=== PATIENT | male | born 1975 | race African-American/Black ===

== ENCOUNTER 2019-02-01 12:59 | Emergency (ER) | payer SELFPAY ==
[~2019-02-01] VITALS: Ht 177.8 cm; Wt 90.7 kg
[2019-02-01] MEDS ORDERED: NACL 0.9% 1,000 ML IV ONE (13:04)
[2019-02-01 13:37] VITALS: BP_SYST 122
[2019-02-01 13:41] LABS: HEMATOCRIT 46.4 % (36-54); HEMOGLOBIN 15.3 g/dL (14.0-18.0); MEAN CORPUSCULAR HEMOGLOBIN 33 pg (27-31); MEAN CORPUSCULAR HGB CONC 33 % (32-36); MEAN CORPUSCULAR VOLUME 101 fL (79.0-98.0); RED CELL DISTRIBUTION WIDTH 12.6 % (9.0-15.0); WHITE BLOOD COUNT (AUTO) 5.7 K/uL (4.8-10.8)
[2019-02-01 13:42] LABS: BASOPHILS % (AUTO) 0.3 % (0.0-2.0); EOSINOPHILS # (AUTO) 0.1 K/uL (0.0-0.4); EOSINOPHILS % (AUTO) 1.5 % (0.0-4.0); LYMPHOCYTES # (AUTO) 1.4 K/uL (1.0-5.5); LYMPHOCYTES % (AUTO) 24.3 % (20.5-51.5); MONOCYTES # (AUTO) 0.4 K/uL (0.0-1.0); MONOCYTES % (AUTO) 6.3 % (1.7-9.3); NEUTROPHILS # (AUTO) 3.8 K/uL (1.8-7.7); NEUTROPHILS % (AUTO) 67.6 % (40.0-70.0); PLATELET COUNT (AUTO) 228 K/uL (130-430)
[2019-02-01 13:50] LABS: CALCIUM 8.8 mg/dL (8.4-11.0); CREATININE 1.2 mg/dL (0.55-1.30); POTASSIUM 4.1 mmol/L (3.5-5.1)
[2019-02-01 13:54] LABS: PROTHROMBIN TIME 10.2 SECS (9.5-12.5); TOTAL BILIRUBIN 1.1 mg/dL (0.0-1.0)
[2019-02-01] MEDS ORDERED: ACETAMINOPHEN 500 MG TABLET PO ONE (14:15)
[2019-02-01 14:23] LABS: BILIRUBIN,URINE NEGATIVE (NEGATIVE); BLOOD, URINE NEGATIVE (NEGATIVE); CLARITY/URINE CLEAR (CLEAR); COLOR,URINE YELLOW (YELLOW); GLUCOSE,URINE NEGATIVE (NEGATIVE); KETONES,URINE NEGATIVE (NEGATIVE); LEUKOCYTE ESTERASE ,URINE NEGATIVE (NEGATIVE); NITRITE, URINE NEGATIVE (NEGATIVE); PH,URINE 5.5 (5.0-8.0); PROTEIN URINE 1+ (NEGATIVE); UROBILINOGEN,URINE 0.2 (0.2-1.0)
[2019-02-01] MEDS ORDERED: KETOROLAC TROMETHAMINE 30 MG VIAL IVP ONE (14:30)
[2019-02-01] MEDS ORDERED: DEXAMETHASONE SOD PHOSPHATE 10 MG/ML VIAL IVP ONE (14:30)
[2019-02-01 15:02] LABS: BACTERIA,URINE FEW /HPF (None Seen); RBC,URINE 0-3 /HPF (0-3); WBC,URINE 0-3 /HPF (0-3)
[2019-02-01 15:03] LABS: MUCUS,URINE 1+ /LPF (None Seen)
[2019-02-01 16:51] VITALS: BP_SYST 122
== END 2019-02-01 16:53 | disposition home or self-care (01) ==
LOC: SED 12:59
DX: I31.9 Disease of pericardium, unspecified (principal)
CPT/HCPCS: 36415; 71045; 80053; 81000; 82150; 82550; 83605; 83690; 84484; 85025; 85610; 85730; 87040; 93005; 96374; 96375; 99284; J1100; J1885; J7030

== ENCOUNTER 2019-02-18 02:45 | Emergency (ER) | payer SELFPAY ==
[~2019-02-18] VITALS: Ht 177.8 cm; Wt 86.2 kg
[2019-02-18 03:02] VITALS: BP_SYST 142
--- NOTE | 2019-02-18 03:02 | NUR ---
Patient to ER bed H1 to gown for evaluation. Side rails up.
--- NOTE | 2019-02-18 03:05 | NUR ---
Patient AOx4, ambulatory, presents to ER with complaint of 10/10 PEDRAZA x3 days. Patient also states nausea, body aches, and photophobia. Patient states that during last visit to ER 02/01/19 he was told that he had inflammation to his heart and given steroids which was effective. No other symptoms or complaints. Will continue to monitor. at bedside.
--- NOTE | 2019-02-18 03:10 | NUR ---
ER MD Mtz at bedside for medical evaluation.
[2019-02-18] MEDS ORDERED: DIPHENHYDRAMINE INJ 50 MG/ML VIAL IVP ONE (03:15)
[2019-02-18] MEDS ORDERED: PROCHLORPERAZINE EDISYLATE 10 MG/2 ML VIAL IVP ONE (03:15)
[2019-02-18] MEDS ORDERED: MORPHINE 4 MG/ML INJ. SYRINGE IVP ONE (03:15)
[2019-02-18] MEDS ORDERED: NACL 0.9% 1,000 ML IV ONE (03:15)
--- NOTE | 2019-02-18 03:32 | NUR ---
# 18 gauge angiocath placed to RAC. Use of asceptic technique. Opsite placed over site. Blood return noted. Blood for lab drawn from site. Flushed with 10 cc of normal saline. No evidence of infiltration noted. Patient tolerated well.
--- NOTE | 2019-02-18 04:11 | NUR ---
Patient went to radiology in stable condition.
--- NOTE | 2019-02-18 04:19 | NUR ---
Patient returned from radiology and was moved to bed 2.
[2019-02-18 04:26] LABS: BASOPHILS % (AUTO) 0.4 % (0.0-2.0); EOSINOPHILS % (AUTO) 0.5 % (0.0-4.0); HEMATOCRIT 43.7 % (36-54); HEMOGLOBIN 14.6 g/dL (14.0-18.0); LYMPHOCYTES % (AUTO) 9.2 % (20.5-51.5); MEAN CORPUSCULAR HEMOGLOBIN 34 pg (27-31); MEAN CORPUSCULAR HGB CONC 33 % (32-36); MEAN CORPUSCULAR VOLUME 102 fL (79.0-98.0); MONOCYTES % (AUTO) 7.1 % (1.7-9.3); NEUTROPHILS # (AUTO) 9.3 K/uL (1.8-7.7); NEUTROPHILS % (AUTO) 82.8 % (40.0-70.0); PLATELET COUNT (AUTO) 190 K/uL (130-430); RED BLOOD CELL COUNT(AUTO) 4.31 MIL/uL (4.2-6.2); RED CELL DISTRIBUTION WIDTH 12.7 % (9.0-15.0); WHITE BLOOD COUNT (AUTO) 11.2 K/uL (4.8-10.8)
[2019-02-18 04:27] LABS: EOSINOPHILS # (AUTO) 0.1 K/uL (0.0-0.4); MONOCYTES # (AUTO) 0.8 K/uL (0.0-1.0)
[2019-02-18 05:14] VITALS: BP_SYST 134
--- NOTE | 2019-02-18 05:14 | NUR ---
Patient given written and verbal discharge instructions and verbalizes understanding. ER MD discussed with patient the results and treatment provided. Patient in stable condition. ID arm band removed. IV catheter removed intact and dressing applied, no active bleeding. Rx of Tramadol, Motrin, and Zofran given. Patient educated on pain management and to follow up with PMD. Pain Scale 0/10. Opportunity for questions provided and answered. Medication side effect fact sheet provided.
== END 2019-02-18 05:14 | disposition home or self-care (01) ==
LOC: SED 02:45
DX: R51 Headache (principal); R11.0 Nausea; H53.149 Visual discomfort, unspecified
CPT/HCPCS: 36415; 70450; 85025; 96374; 96375; 99284; J0780; J1200; J2270; J7030

== ENCOUNTER 2020-10-17 05:10 | Emergency (ER) | payer SELFPAY ==
[~2020-10-17] VITALS: Ht 177.8 cm; Wt 90.7 kg
[2020-10-17 05:25] VITALS: BP_SYST 162
--- NOTE | 2020-10-17 05:25 | NUR ---
Patient to ER bed 8 to gown for evaluation. Side rails up. Report received from SHAW Capellan.
--- NOTE | 2020-10-17 05:27 | NUR ---
pt a&o x4 from home c/o of right flank pain that started an hour ago, nausea, vomiting, and constipation. pt rates pain 10/10. last bowel movement this morning but pt states it was "a little pebble". hx of kidney stones. pt denies trouble urinating, burning or pain upon urination.
--- NOTE | 2020-10-17 05:29 | NUR ---
ER Dr. Kelley at bedside examining patient.
--- NOTE | 2020-10-17 05:30 | NUR ---
# 18 gauge angiocath placed to LAC. Use of asceptic technique. Opsite placed over site. Blood return noted. Blood, blood cultures, lactic for lab drawn from site. Flushed with 10 cc of normal saline. No evidence of infiltration noted. Patient tolerated well.
--- NOTE | 2020-10-17 05:42 | NUR ---
PATIENT MEDICATED PER MD ORDER. PT TOLERATED WELL.
[2020-10-17] MEDS ORDERED: KETOROLAC TROMETHAMINE 30 MG VIAL IVP ONE (05:45)
[2020-10-17] MEDS ORDERED: ONDANSETRON HCL 4 MG/2 ML VIAL IVP ONE (05:45)
[2020-10-17] MEDS ORDERED: NACL 0.9% 1,000 ML IV ONE (05:45)
--- NOTE | 2020-10-17 05:52 | NUR ---
PATIENT HAD AN EPISODE OF VOMITING. AWARE.
[2020-10-17 05:58] LABS: BASOPHILS % (AUTO) 0.3 % (0.0-2.0); EOSINOPHILS # (AUTO) 0.1 K/uL (0.0-0.4); EOSINOPHILS % (AUTO) 0.6 % (0.0-4.0); HEMOGLOBIN 14.2 g/dL (14.0-18.0); LYMPHOCYTES # (AUTO) 1.7 K/uL (1.0-5.5); LYMPHOCYTES % (AUTO) 16.1 % (20.5-51.5); MEAN CORPUSCULAR HEMOGLOBIN 34 pg (27-31); MEAN CORPUSCULAR HGB CONC 34 % (32-36); MEAN CORPUSCULAR VOLUME 100 fL (79.0-98.0); MONOCYTES # (AUTO) 0.7 K/uL (0.0-1.0); MONOCYTES % (AUTO) 6.8 % (1.7-9.3); NEUTROPHILS # (AUTO) 7.8 K/uL (1.8-7.7); NEUTROPHILS % (AUTO) 76.2 % (40.0-70.0); PLATELET COUNT (AUTO) 210 K/uL (130-430); RED BLOOD CELL COUNT(AUTO) 4.22 MIL/uL (4.2-6.2); RED CELL DISTRIBUTION WIDTH 12.4 % (9.0-15.0); WHITE BLOOD COUNT (AUTO) 10.3 K/uL (4.8-10.8)
[2020-10-17 06:08] LABS: CALCIUM 8.2 mg/dL (8.4-11.0); CREATININE 1.46 mg/dL (0.55-1.30); POTASSIUM 3.3 mmol/L (3.5-5.1)
--- NOTE | 2020-10-17 06:13 | NUR ---
PATIENT USING BEDSIDE URINAL TO GIVE URINE SAMPLE.
[2020-10-17 06:14] LABS: ALBUMIN 3.7 g/dL (3.4-4.8)
[2020-10-17 06:33] LABS: BILIRUBIN,URINE NEGATIVE (NEGATIVE); BLOOD, URINE 3+ (NEGATIVE); CLARITY/URINE SLIGHTLY HAZY (CLEAR); COLOR,URINE YELLOW (YELLOW); GLUCOSE,URINE TRACE (NEGATIVE); KETONES,URINE TRACE (NEGATIVE); LEUKOCYTE ESTERASE ,URINE NEGATIVE (NEGATIVE); NITRITE, URINE NEGATIVE (NEGATIVE); PH,URINE 5.5 (5.0-8.0); PROTEIN URINE TRACE (NEGATIVE); UROBILINOGEN,URINE 0.2 (0.2-1.0)
[2020-10-17 06:40] LABS: BACTERIA,URINE FEW /HPF (None Seen); RBC,URINE 20-50 /HPF (0-3); WBC,URINE 0-3 /HPF (0-3)
--- NOTE | 2020-10-17 06:44 | NUR ---
ultrasound at bedside.
--- NOTE | 2020-10-17 06:55 | NUR ---
patient states pain has increased to a 7 out of 10. md aware.
[2020-10-17] MEDS ORDERED: MORPHINE 4 MG/ML INJ. SYRINGE IVP ONE (07:00)
--- NOTE | 2020-10-17 07:20 | NUR ---
patient states pain has decreased to a 1 out of 10. md aware.
--- NOTE | 2020-10-17 07:20 | NUR ---
per MD CT scan will cancelled.
--- NOTE | 2020-10-17 07:30 | NUR ---
report given to SHAW Martinez for continuation of care.
[2020-10-17] MEDS ORDERED: POTASSIUM CHLORIDE 20 MEQ TAB.PRT.SR PO ONE (07:45)
[2020-10-17 08:08] VITALS: BP_SYST 123
--- NOTE | 2020-10-17 08:10 | NUR ---
Patient given written and verbal discharge instructions and verbalizes understanding. ER MD discussed with patient the results and treatment provided. Patient in stable condition. ID arm band removed. IV catheter removed intact and dressing applied, no active bleeding. Rx of NORCO given. Patient educated on pain management and to follow up with PMD. Pain Scale 3/10 . Opportunity for questions provided and answered. Medication side effect fact sheet provided.
== END 2020-10-17 08:08 | disposition home or self-care (01) ==
LOC: SED 05:10
DX: N18.9 Chronic kidney disease, unspecified (principal); E87.6 Hypokalemia; R10.9 Unspecified abdominal pain
CPT/HCPCS: 36415; 76770; 80053; 81000; 83690; 85025; 96361; 96374; 96375; 99284; J1885; J2270; J2405; J7030

== ENCOUNTER 2022-07-05 15:05 | Emergency (ER) | payer OTHER ==
[~2022-07-05] VITALS: Ht 177.8 cm; Wt 90.7 kg
[2022-07-05 15:05] VITALS: BP_SYST 147
[2022-07-05] MEDS ORDERED: KETOROLAC TROMETHAMINE 60 MG/2 ML VIAL IM ONE (15:30)
[2022-07-05 15:37] LABS: BASOPHILS % (AUTO) 0.3 % (0.0-2.0); EOSINOPHILS % (AUTO) 0.1 % (0.0-4.0); HEMATOCRIT 41.9 % (36-54); LYMPHOCYTES # (AUTO) 0.7 K/uL (1.0-5.5); LYMPHOCYTES % (AUTO) 5.8 % (20.5-51.5); MEAN CORPUSCULAR HEMOGLOBIN 33 pg (27-31); MEAN CORPUSCULAR HGB CONC 33 % (32-36); MEAN CORPUSCULAR VOLUME 98 fL (79.0-98.0); MONOCYTES # (AUTO) 0.6 K/uL (0.0-1.0); MONOCYTES % (AUTO) 4.9 % (1.7-9.3); NEUTROPHILS # (AUTO) 11.4 K/uL (1.8-7.7); NEUTROPHILS % (AUTO) 88.9 % (40.0-70.0); PLATELET COUNT (AUTO) 200 K/uL (130-430); RED BLOOD CELL COUNT(AUTO) 4.26 MIL/uL (4.2-6.2); RED CELL DISTRIBUTION WIDTH 12.6 % (9.0-15.0); WHITE BLOOD COUNT (AUTO) 12.8 K/uL (4.8-10.8)
[2022-07-05 15:50] LABS: ANION GAP 7 (5-15); CALCIUM 9.3 mg/dL (8.4-11.0); CHLORIDE 106 mmol/L (98-107); CREATININE 1.65 mg/dL (0.55-1.30); GLUCOSE 106 mg/dL (70-99); POTASSIUM 4.2 mmol/L (3.5-5.1); SODIUM SERUM 142 mmol/L (136-145); UREA NITROGEN, BLOOD 15 mg/dL (8-21)
[2022-07-05 15:52] LABS: GFR AFRICAN AMERICAN 57 mL/min (>90)
[2022-07-05 15:55] LABS: ALANINE AMINOTRANSFERASE 23 U/L (12-78); ALBUMIN 3.9 g/dL (3.4-4.8); AMYLASE 99 U/L (0-100); ASPARTATE AMINOTRANSFERASE 18 U/L (10-37); LIPASE 117 U/L (73-393); TOTAL BILIRUBIN 1.4 mg/dL (0.0-1.0)
[2022-07-05] MEDS ORDERED: IBUP-1971 PO (16:22)
[2022-07-05] MEDS ORDERED: HYDR-3927 PO (16:22)
[2022-07-05 16:29] VITALS: BP_SYST 121
[2022-07-05 19:21] LABS: C-REACTIVE PROTEIN QUANT < 0.2 mg/dL (0-0.5)
== END 2022-07-05 16:30 | disposition home or self-care (01) ==
LOC: SED 15:05
DX: N23 Unspecified renal colic (principal); R11.0 Nausea; Z87.442 Personal history of urinary calculi; Z79.899 Other long term (current) drug therapy
CPT/HCPCS: 99284; 74176; 96374; 80053; 82150; 83690; 85025; 86140; 36415; 76376; J1885